=== PATIENT | female | born 1950 | race Caucasian/White ===

== ENCOUNTER 2020-03-07 10:20 | Outpatient (REF) | payer OTHER, SELFPAY ==
[2020-03-07 20:40] LABS: HCT 39.9 % (36.0-46.0); HGB 13.1 g/dL (11.2-15.7)
[2020-03-07 21:21] LABS: Hemoglobin A1C 6.3 % (3.8-5.6)
== END 2020-03-07 10:40 ==
LOC: NCHCN 10:20
PROVIDERS: PCP Nurse Practitioner Family; Visit Provider Registered Nurse
DX: R73.03 Prediabetes (principal)
CPT/HCPCS: 83036; 85014; 85018

== ENCOUNTER 2020-12-18 11:47 | Outpatient (REF) | payer OTHER, SELFPAY ==
[2020-12-18 22:07] LABS: Anion Gap 6.7 mmol/L (3-11); BUN 17 mg/dL (7-18); CO2 30.3 mmol/L (21.0-32.0); CREATININE 1.5 mg/dL (0.55-1.02); Calcium 9.1 mg/dL (8.5-10.1); Chloride 110 mmol/L (98-107); Estimated GFR 34.43 (mL/min/1.73m2); Glucose 106 mg/dL (74-106); Potassium 5.3 mmol/L (3.5-5.1); Sodium 147 mmol/L (136-145)
== END 2020-12-18 11:48 | disposition home or self-care (01) ==
LOC: NCHCN 11:47
PROVIDERS: PCP Nurse Practitioner Family; Visit Provider Registered Nurse
DX: R73.03 Prediabetes (principal); E78.5 Hyperlipidemia, unspecified; N18.4 Chronic kidney disease, stage 4 (severe)
CPT/HCPCS: 80048; 83036

== ENCOUNTER 2020-12-25 11:09 | Outpatient (REF) | payer OTHER, SELFPAY ==
[2020-12-25 14:26] LABS: Anion Gap 9.7 mmol/L (3-11); BUN 21 mg/dL (7-18); CO2 27.3 mmol/L (21.0-32.0); CREATININE 1.4 mg/dL (0.55-1.02); Calcium 8.8 mg/dL (8.5-10.1); Chloride 108 mmol/L (98-107); Estimated GFR 37.28 (mL/min/1.73m2); Glucose 116 mg/dL (74-106); Potassium 4.3 mmol/L (3.5-5.1); Sodium 145 mmol/L (136-145)
== END 2020-12-25 11:10 | disposition home or self-care (01) ==
LOC: NCHCN 11:09
PROVIDERS: PCP Nurse Practitioner Family; Visit Provider Registered Nurse
DX: N18.4 Chronic kidney disease, stage 4 (severe) (principal)
CPT/HCPCS: 80048

== ENCOUNTER 2021-08-14 12:54 | Outpatient (REF) | payer MEDICARE, SELFPAY ==
[2021-08-14 15:57] LABS: Hemoglobin A1C 6.2 % (<5.7)
[2021-08-14 16:04] LABS: Anion Gap 7.4 mmol/L (3-11); BUN 22 mg/dL (7-18); CO2 29.6 mmol/L (21.0-32.0); CREATININE 1.4 mg/dL (0.55-1.02); Calcium 8.9 mg/dL (8.5-10.1); Chloride 107 mmol/L (98-107); Estimated GFR 37.18 (mL/min/1.73m2); Glucose 115 mg/dL (74-106); Potassium 4.5 mmol/L (3.5-5.1); Sodium 144 mmol/L (136-145)
== END 2021-08-14 12:55 | disposition home or self-care (01) ==
LOC: NCHCN 12:54
PROVIDERS: PCP Nurse Practitioner Family; Visit Provider Registered Nurse
DX: R73.03 Prediabetes (principal); N18.4 Chronic kidney disease, stage 4 (severe)
CPT/HCPCS: 80048; 83036

== ENCOUNTER 2021-11-14 15:47 | Outpatient (REF) | payer MEDICARE, SELFPAY ==
[2021-11-14 16:07] LABS: Hemoglobin A1C 6.4 % (<5.7)
[2021-11-14 16:16] LABS: Anion Gap 6.6 mmol/L (3-11); BUN 18 mg/dL (7-18); CO2 28.4 mmol/L (21.0-32.0); CREATININE 1.5 mg/dL (0.55-1.02); Calcium 8.6 mg/dL (8.5-10.1); Chloride 108 mmol/L (98-107); Estimated GFR 34.33 (mL/min/1.73m2); Glucose 147 mg/dL (74-106); Potassium 4.2 mmol/L (3.5-5.1); Sodium 143 mmol/L (136-145)
== END 2021-11-14 15:48 | disposition home or self-care (01) ==
LOC: NCHCN 15:47
PROVIDERS: PCP Nurse Practitioner Family; Visit Provider Registered Nurse
DX: R73.03 Prediabetes (principal); N18.4 Chronic kidney disease, stage 4 (severe)
CPT/HCPCS: 80048; 83036

== ENCOUNTER 2021-12-12 18:37 | Outpatient (REF) | payer MEDICARE, SELFPAY ==
[2021-12-12 15:18] LABS: COMMENT (LAB VIEW ONLY) 57.47 mg/dL; Microalb ug/mg Crea 24.7 ug/mg Cr
== END 2021-12-12 18:38 | disposition home or self-care (01) ==
LOC: NCHCN 18:37
PROVIDERS: PCP Nurse Practitioner Family; Visit Provider Registered Nurse
DX: R73.03 Prediabetes (principal); N18.4 Chronic kidney disease, stage 4 (severe)
CPT/HCPCS: 82043; 82570

== ENCOUNTER 2022-08-14 12:47 | Outpatient (REF) | payer MEDICARE, SELFPAY ==
[2022-08-14 21:07] LABS: Anion Gap 4.8 mmol/L (3-11); BUN 18 mg/dL (7-18); CO2 30.2 mmol/L (21.0-32.0); CREATININE 1.5 mg/dL (0.55-1.02); Chloride 108 mmol/L (98-107); Estimated GFR 37.03 (mL/min/1.73m2); Glucose 136 mg/dL (74-106); Potassium 4.3 mmol/L (3.5-5.1); Sodium 143 mmol/L (136-145)
== END 2022-08-14 12:48 | disposition home or self-care (01) ==
LOC: NCHCN 12:47
PROVIDERS: PCP Nurse Practitioner Family; Visit Provider Family Medicine
DX: N18.4 Chronic kidney disease, stage 4 (severe) (principal)
CPT/HCPCS: 80048